=== PATIENT | female | born 1955 | race African-American/Black ===

== ENCOUNTER → 2019-05-05 | Day surgery (SDC) | payer BC ==
[~2019-05-05] MED LIST: HYDR12.575 PO; HYDROmorphone 2 MG/ML VIAL IV PRN; IV RINGERS,LACTATED 1000ML 1,000 ML IV SCH; LIDOCAINE 1% PF 2 ML VIAL. ID PRN; LIDOCAINE 2% PF 5 ML VIAL. ONE; LISI-334 PO; MORPHINE SULFATE 2 MG/ML VIAL. IV PRN; ONDANSETRON PF 4 MG/2 ML VIAL. IV PRN; PROCHLORPERAZINE 10 MG/2 ML VIAL. IV PRN; PROPOFOL 40 ML IV ONE; fentaNYL PF VIAL 100 MCG/2 ML VIAL IV PRN
--- NOTE | 2019-05-05 12:45 | PDOC1 ---
History and Physical Date of Admission Date of Admission DATE: 05/05/19 TIME: 12:40 Identification/Chief Complaint Chief Complaint Colon cancer screening. History of Present Illness History of Present Illness 63 y/o female here for colon cancer screening. No prior. No symptoms. Brother with colon cancer. Past Medical History Cardiovascular: HTN Past Surgical History Past Surgical History: No pertinent history Family History Family History: Hypertension Social History Smoke: No ALCOHOL: occassional Drugs: None Current Medications Current Medications Current Medications Ondansetron HCl (Zofran) 4 mg PRN Q6HRS PRN IV NAUSEA/VOMITING; Start 05/05/19 at 07:00; Stop 05/05/19 at 20:00 Fentanyl Citrate (Fentanyl 2ml Vial) 25 mcg PRN Q5MIN PRN IV MILD PAIN 1-3; Start 05/05/19 at 07:00; Stop 05/05/19 at 20:00 Fentanyl Citrate (Fentanyl 2ml Vial) 50 mcg PRN Q5MIN PRN IV MODERATE TO SEVERE PAIN; Start 05/05/19 at 07:00; Stop 05/05/19 at 20:00 Morphine Sulfate (Morphine Sulfate) 1 mg PRN Q10MIN PRN IV SEVERE PAIN 7-10; Start 05/05/19 at 07:00; Stop 05/06/19 at 06:59; Status UNV Ringer's Solution 1,000 ml @ 30 mls/hr Q24H IV ; Start 05/05/19 at 07:00; Stop 05/05/19 at 18:59; Status UNV Lidocaine HCl (Xylocaine-Mpf 1% 2ml Vial) 2 ml PRN 1X PRN ID PRIOR TO IV START; Start 05/05/19 at 07:00; Stop 05/06/19 at 06:59; Status UNV Hydromorphone HCl (Dilaudid) 0.5 mg PRN Q10MIN PRN IV SEV PAIN, Second choice; Start 05/05/19 at 07:00; Stop 05/06/19 at 06:59; Status UNV Prochlorperazine Edisylate (Compazine) 5 mg PACU PRN PRN IV NAUSEA, MRX1; Start 05/05/19 at 07:00; Stop 05/06/19 at 06:59; Status UNV Allergies Allergies: Coded Allergies: No Known Drug Allergies (Unverified , 05/05/19) ROS Review of System Otherwise negative. Physical Exam General: Alert, Oriented X3, Cooperative, No acute distress HEENT: PERRLA, EOMI Lungs: Clear to auscultation Heart: S1S2, RRR, no gallops, no murmurs Rectal Exam: deferred (to procedure) Extremities: No cyanosis, No edema Skin: No significant lesion Neuro: Normal gait, Normal speech, Strength at 5/5 X4 ext, Normal tone, Sensation intact, Cranial nerves 3-12 NL, Reflexes 2+ Psych/Mental Status: Mental status NL, Mood NL Vitals Vitals See nursing record. VTE Prophylaxis Ordered VTE Prophylaxis Devices: No VTE Pharmacological Prophylaxi: No Assessment/Plan Assessment/Plan IMP: Screen for colon cancer; first degree relative with colon cancer, elevating risk. PLAN: Colonoscopy. JULI NEWMAN MD May 05, 2019 12:45
--- NOTE | 2019-05-05 13:23 | PDOC4 ---
PROCEDURE Procedure Colonoscopy with biopsy Indication: screen, FH of colon cancer Meds: per anesthesia Findings: RIKY normal. --'Scope advanced to cecum. Prep good. Mucosa normal. No diverticular disease. --3-4mm polyp, proximal transverse, biopsied off. --Internal hemorrhoids on retroflex. Otherwise normal exam. Maryan. well. IMP: one polyp IH's. REC: Resume home meds and diet. Await path. F/u in 2 weeks. Repeat exam 5-7 years. JULI NEWMAN MD May 05, 2019 13:23
[2019-05-05 13:41] VITALS: BP 145/86
--- NOTE | 2019-05-07 15:07 | PATHOLOGY ---
[facility] Accession Number: [id number] . 01 Material submitted: . colon - PROXIMAL TRANSVERSE COLON POLYP BX. Modifiers: proximal, transverse . 01 Clinical history: . Screening; family history of colon cancer . 02 Diagnosis: Colon biopsy, proximal transverse colon polyp: - Tubular adenoma. ([facility] 05/07/2019) [facility] 05/07/2019 1000 Local . 02 Comment: There is no high-grade dysplasia or evidence of malignancy. ([facility] 05/07/2019) . 02 Electronically signed: . Lucien Stevens MD, Pathologist NPI- [id number] . 01 Gross description: . The specimen is received in formalin, labeled "Erin Mahoneyl, proximal transverse colon polyp biopsy". Received is a segment of pale dyer soft tissue measuring 0.4 cm in maximum dimensions. The specimen is submitted entirely in cassette A1. ([facility]; 05/06/2019) [facility] 05/06/2019 1618 Local . 02 Pathologist provided ICD-10: D12.3 . 02 CPT . 544589 Specimen Comment: A courtesy copy of this report has been sent to [phone] Specimen Comment: [id number] Specimen Comment: Report sent to / DR VALDEZ Performed at: 01 [facility] [address], [place] [id number] MD Vernon Blas MD Phone: [phone] Performed at: 02 [facility] [address], [place] [id number] MD Lucien Stevens MD Phone: [phone]
== END ==
LOC: ENDOS 12:07
PROVIDERS: ATTEND Internal Medicine Gastroenterology
DX: Z12.11 Encounter for screening for malignant neoplasm of colon (principal); D12.3 Benign neoplasm of transverse colon; K64.0 First degree hemorrhoids; K63.89 Other specified diseases of intestine; I10 Essential (primary) hypertension; Z72.89 Other problems related to lifestyle
CPT/HCPCS: 45380; J2001; J2704